=== PATIENT | female | born 1985 | race Caucasian/White ===

== ENCOUNTER 2020-07-31 17:54 | Emergency (ER) | payer MEDICAID ==
[~2020-07-31] VITALS: Ht 175.3 cm; Wt 102.0 kg
[2020-07-31 23:12] LABS: HEMATOCRIT. 26.1 % (36.0-48.0); HEMOGLOBIN. 7.7 g/dL (12.0-16.0); MEAN CORPUSCULAR HEMOGLOBIN 21.5 pg (28.0-32.0); MEAN CORPUSCULAR VOLUME 73.1 fL (81.0-99.0); MEAN PLATELET VOLUME 7.9 fl (7.4-10.4); PLATELET 517 x1000/uL (130-400); RED BLOOD CELL COUNT 3.57 mill/uL (4.2-5.4)
[2020-07-31 23:16] LABS: CHLORIDE 110 mEq/L (98-107)
[2020-07-31 23:23] LABS: HCG SCREEN NEGATIVE
[2020-07-31] MEDS ORDERED: SODIUM CHLORIDE 0.9% 1,000 ML IV ONE (23:45)
[2020-08-01] MEDS ORDERED: IOHEXOL-350 100 ML BOTTLE ONE (00:44)
[2020-08-01 01:30] VITALS: BP 126/79
[2020-08-01 01:41] LABS: PLATELET ESTIMATE INCREASED
== END 2020-08-01 02:02 | disposition home or self-care (01) ==
LOC: ER 17:54
DX: K80.20 Calculus of gallbladder without cholecystitis without obstruction (principal); K44.9 Diaphragmatic hernia without obstruction or gangrene; D64.9 Anemia, unspecified; F15.10 Other stimulant abuse, uncomplicated; F17.210 Nicotine dependence, cigarettes, uncomplicated; Z98.890 Other specified postprocedural states; Z88.3 Allergy status to other anti-infective agents
CPT/HCPCS: 36415; 71045; 71275; 80048; 84484; 84703; 85025; 85379; 86850; 86900; 86901; 93005; 96360; 99285; J7030; Q9967